=== PATIENT | female | born 1945 | race Caucasian/White ===

== ENCOUNTER 2017-08-21 20:25 | Emergency (ER) | payer MEDICARE ==
[~2017-08-21] VITALS: Ht 172.7 cm; Wt 58.1 kg
[2017-08-21] MEDS ORDERED: RESTASIS1 EACH OPHTHALMIC (20:47)
[2017-08-21] MEDS ORDERED: METHOTREXATE 22.5 M1 PO (20:47)
[2017-08-21] MEDS ORDERED: PRILOSEC 20 MG20 MG PO (20:48)
[2017-08-21] MEDS ORDERED: GLUCOSAMINE HC500 MG PO (20:48)
[2017-08-21] MEDS ORDERED: CALCIUM 500 +1 EAC5 PO (20:48)
[2017-08-21] MEDS ORDERED: MULTIVITAMINS1 EAC7 PO (20:49)
[2017-08-21] MEDS ORDERED: REMICADE 1100 MG/VIA ×2 (20:50→20:52)
[2017-08-21] MEDS ORDERED: ELIQUIS5 MG PO (20:58)
[2017-08-21] MEDS ORDERED: FOSAMAX 70 MG T70 MG PO (20:58)
[2017-08-21] MEDS ORDERED: COZAAR 25 MG TA25 MG PO (20:59)
[2017-08-21] MEDS ORDERED: LOPRESSOR100 M1 PO (20:59)
[2017-08-21 22:56] VITALS: BP 172/72
== END 2017-08-21 22:58 | disposition home or self-care (01) ==
LOC: M.ERS 20:25
DX: S63.591A Other specified sprain of right wrist, initial encounter (principal); R07.81 Pleurodynia; M25.511 Pain in right shoulder; I48.91 Unspecified atrial fibrillation; M19.90 Unspecified osteoarthritis, unspecified site; M06.9 Rheumatoid arthritis, unspecified; Z88.8 Allergy status to other drugs, medicaments and biological substances; Z88.2 Allergy status to sulfonamides; Z88.1 Allergy status to other antibiotic agents; W18.43XA Slipping, tripping and stumbling without falling due to stepping from one level to another, initial encounter; Y93.89 Activity, other specified; Y92.89 Other specified places as the place of occurrence of the external cause; Y99.8 Other external cause status